=== PATIENT | male | born 2000 | race African-American/Black ===

== ENCOUNTER 2024-02-02 20:03 | Outpatient (REF) | payer OTHER, SELFPAY ==
--- NOTE | ~2024-02-02 | MR_ITS ---
EXAMINATION: MR FEMUR WITHOUT CONTRAST, RIGHT CLINICAL INFORMATION: Pain and swelling. Evaluate for quadriceps tendon tear. COMPARISON: None. TECHNIQUE: Multisequence MR imaging of the right femur was obtained without contrast on a high field strength scanner. FINDINGS: BONE: No marrow edema or evidence of acute osseous injury. No stress reaction, fracture, or avascular necrosis. No concerning lytic or blastic osseous lesion. MUSCLES/TENDONS: There is heterogeneity and irregularity involving the rectus femoris myotendinous junction extending from the level of the proximal femoral metaphysis distally along the muscle belly to the level of the mid diaphysis. This is over a length of approximately 12.9 cm in craniocaudal dimension. Edema throughout the muscle belly with trace linear areas of fluid signal. Findings are consistent with an acute/subacute grade 2 strain/partial tear. No full-thickness tendon tear or tendon retraction. The remaining visualized muscles and tendons are intact. SOFT TISSUES: No soft tissue mass or fluid collection. No restricted diffusion. The visualized intrapelvic structures are unremarkable. MR/MR femur RT wo con IMPRESSION: Acute/subacute grade 2 strain/partial tear of the rectus femoris muscle extending from the level of the proximal femoral metaphysis distally to the level of the mid diaphysis. No full-thickness tendon tear or tendon retraction. Electronically signed by: Eugene Bryson MD 02/03/2024 08:21 AM EDT RP
== END 2024-02-02 20:04 | disposition home or self-care (01) ==
LOC: HO.MRI 20:03
PROVIDERS: Visit Provider Family Medicine
DX: M79.651 Pain in right thigh (principal)
CPT/HCPCS: 73718

== ENCOUNTER 2024-04-21 19:37 | Outpatient (REF) | payer OTHER, SELFPAY ==
--- NOTE | ~2024-04-21 | MR_ITS ---
EXAMINATION: MR KNEE WITHOUT CONTRAST, LEFT CLINICAL INFORMATION: Instability, knee pain, suspect torn meniscus. COMPARISON: None available. TECHNIQUE: MRI of the knee without contrast was performed using routine sequences on a high-field scanner. FINDINGS: BONE MARROW: -No fractures or abnormal infiltrating bone marrow signal. -Subtle focus of subcortical edema at the insertional aspect of the patellofemoral ligament upon the medial condyle, likely stress response (series 12, image 20). Suspect a partial tear of the ligament at the insertion (series 12, image 18). -No additional bone marrow edema identified. No subchondral bone plate edema. ARTICULAR CARTILAGE: Patellofemoral Compartment: -There is a tiny focus of near full-thickness cartilage fissuring involving the inferior patellar apex oriented slightly medial of midline (series 8, image 11) . -Cartilage otherwise intact and normal in thickness and signal. Medial Compartment: -Normal cartilage without focal defect. Lateral Compartment: -Normal cartilage with only minimal surface irregularity of the lateral tibial plateau. No defects. JOINT FLUID AND BURSAE: -There is a small amount of increased joint fluid consistent with a small joint effusion. -No bursal abnormalities. MENISCI: Lateral Meniscus: -Oblique undersurface tear extending from the free margin to the superior aspect, posterior horn. No displaced fragment. -Otherwise intact and normal in signal. Root entry zones are normal. Medial Meniscus: -No definite tear present. Mild linear signal within the body does not extend to a joint surface to define a tear. -Otherwise normal. Rudimentary zones intact. LIGAMENTS: ACL: Intact and normal in signal. PCL: Intact and normal in signal. MCL: Intact .There is mild edema overlying the majority of the ligament, suggesting the possibility of a grade 1 strain injury. LCL complex: Intact and normal in signal. EXTENSOR MECHANISM: -Intact and normal in signal OTHER: -Muscles are normal in signal and bulk. -No popliteal fossa abnormality. MR/MR knee LT wo con IMPRESSION: 1. Oblique undersurface tear involving the posterior horn, lateral meniscus. No displaced fragment. 2. No additional meniscal tearing. 3. Small joint effusion. 4. Grade 1 strain MCL. 5. Focus of full-thickness cartilage fissuring inferior patellar apex. Cartilage is otherwise intact. 6. Suspect a partial insertional tear of the medial patellofemoral ligament. Electronically signed by: Joshua Baxter MD 04/28/2024 02:13 PM AMBERLY
== END 2024-04-21 19:38 | disposition home or self-care (01) ==
LOC: HO.MRI 19:37
PROVIDERS: Visit Provider Student in an Organized Health Care Education/Training Program
DX: M25.362 Other instability, left knee (principal)
CPT/HCPCS: 73721

== ENCOUNTER → 2024-04-21 19:42 | Outpatient (BNV) | payer OTHER, SELFPAY | PROVIDERS: Visit Provider Radiology Diagnostic Radiology | DX: M25.562 Pain in left knee (principal) | CPT/HCPCS: 73721 ==

== ENCOUNTER 2024-07-25 06:15 | Outpatient (REF) | payer OTHER, SELFPAY ==
--- OUTSIDE RECORDS SUMMARY | 2024-07-25 06:17 | XMS_ITS | Clinical Summary ---
Author Organization [facility] Address [address] [facility] [place] [address] Care Team Providers Care Animal Trainer Name Role Phone Ashvin Sawyre MD Primary Care Provider [phone] Allergies No known active allergies Medications Medication Sig Dispensed Refills Start Date End Date Status HYDROcodone-acetamino phen (NORCO) 5 mg-325 mg tablet Take 1 Tab by mouth every 6 hours as needed for moderate pain 15 Tab 08/11/2017 Active ondansetron (ZOFRAN ODT) 8 mg rapid dissolve tablet Take 1 Tab (8 mg) by mouth every 8 hours as needed for nausea/vomiting 8 Tab 08/11/2017 Active Active Problems Problem Noted Date Diagnosed Date Lela-Schlatter's disease, right 07/22/2017 Social History Tobacco Use Types Packs/Day Years Used Date Smoking Tobacco: Never Assessed Sex and Gender Information Value Date Recorded Sex Assigned at Not on file Gender Identity Not on file Sexual Orientation Not on file Last Filed Vital Signs Vital Sign Reading Time Taken Comments Blood Pressure 128/70 08/11/2017 6:50 PM EST Pulse 72 08/11/2017 6:50 PM EST Temperature 36.3 ??C (97.3 ??F) 08/11/2017 6:50 PM ES T Respiratory Rate 18 08/11/2017 6:50 PM EST Oxygen Saturation 97% 08/11/2017 6:50 PM EST Inhaled Oxygen Concentration - - Weight 147.5 kg (325 lb 2.9 oz) 08/11/2017 1:42 PM EST Height 195.6 cm (6' 5 ) 08/11/2017 1:42 PM EST Body Mass Index 38.56 08/11/2017 1:42 PM EST Plan of Treatment Health Maintenance Due Date Last Done Comments COVID-19 Vaccine ( season) 2024 Care Teams Animal Trainer Relationship Specialty Start Date End Date Ashvin Sawyer MD [address] [place] [id number] PCP - General Pediatrics 07/22/17
--- OUTSIDE RECORDS SUMMARY | 2024-07-25 06:17 | XMS_ITS | Clinical Summary ---
Author Organization [facility] Address [address] [place] [address] Care Team Providers Care Casing Inspector Name Role Phone Elizabeth Pablo MD Primary Care Provider [phone] Allergies Active Allergy Reactions Criticality Noted Date Comments No Allergy Information Available Other (See Comments) 10/09/2015 Medications Medication Sig Dispensed Refills Start Date End Date Status fluticasone (FLONASE) 50 mcg/actuation nasal spray 2 sprays by Nasal route daily.. 1 Bottle 3 10/09/2015 Active Social History Tobacco Use Types Packs/Day Years Used Date Smoking Tobacco: Never Smokeless Tobacco: Never Alcohol Use Standard Drinks/Week Comments Not Asked 0 (1 standard drink = 0.6 oz pur e alcohol) Sex and Gender Information Value Date Recorded Sex Assigned at Not on file Gender Identity Not on file Sexual Orientation Not on file Last Filed Vital Signs Vital Sign Reading Time Taken Comments Blood Pressure 118/74 10/09/2015 11:14 AM EDT Pulse - - Temperature 36.5 ??C (97.7 ??F) 10/09/2015 1 1:14 AM EDT Respiratory Rate 16 10/09/2015 11:1 4 AM EDT Oxygen Saturation - - Inhaled Oxygen Concentration - - Weight 138.9 kg (306 lb 3.2 oz) 016 11:14 AM EDT Height 193 cm (6' 4 ) 10/09/2015 11:14 AM EDT Body Mass Index 37.27 10/09/2015 11:14 AM EDT Plan of Treatment Health Maintenance Due Date Last Done Comments HIV SCREENING 2001 HIV Screening Every 1 Year 2001 HIV Screening Once 2001 Hepatitis C Screening 2001 COVID-19 Vaccine (1 of 4) 2013 Meningococcal B (1 of 2 - Standard) 2017 DTAP/TDAP/TD (1 - Tdap) 2020 HEPATITIS B VACCINES (1 of 3 - 19+ 3-dose series) 2020 Influenza vaccine (#1) 2024 Pneumococcal Vaccine: 0 to 64 Years Aged Out No longer eligible based on patient's age to complete this topic Care Teams Casing Inspector Relationship Specialty Start Date End Date Elizabeth Pablo MD [address] [place] [id number] PCP - General Family Medicine 09/27/15
--- OUTSIDE RECORDS SUMMARY | 2024-07-25 06:17 | XMS_ITS | Clinical Summary ---
Author Organization [facility] Address [address] [place] [address] Phone Care Team Providers Care Machine Stone Polisher Name Role Phone Unavailable Primary Care Provider Unavailabl e Allergies No known active allergies Medications No known medications Social History Tobacco Use Types Packs/Day Years Used Date Smoking Tobacco: Never Assessed Sex and Gender Information Value Date Recorded Sex Assigned at Not on file Legal Sex Male 6:02 PM EDT Gender Identity Not on file Sexual Orientation Not on file Last Filed Vital Signs Vital Sign Reading Time Taken Comments Blood Pressure 138/78 03/31/2022 2:30 PM EDT Pulse 61 03/31/2022 2:30 PM EDT Temperature 36.6 ??C (97.9 ??F) 03/31/2022 2:18 PM ED T Respiratory Rate 16 03/31/2022 2:30 PM EDT Oxygen Saturation 99% 03/31/2022 2:30 PM EDT Inhaled Oxygen Concentration - - Weight 136 kg (300 lb) 03/31/2022 1:36 PM EDT Height 195.6 cm (6' 5 ) 03/31/2022 1:36 PM EDT Body Mass Index 35.57 03/31/2022 1:36 PM EDT Plan of Treatment Health Maintenance Due Date Last Done Comments HIV Screening 2001 Depression Screening 2013 Meningococcal B Vaccine (1 o f 2 - Standard) 2017 Hepatitis C Screening 10/23/2019 Influenza Vaccine (#1) 2024 06/22/2017 DTaP/Tdap/Td Vaccines (7 - T d or Tdap) 02/29/2024 02/28/2014, 08/23/2006, 07/19/2003, Additional history exists Insurance [facility] [employer] [place] [id number]
== END 2024-07-25 06:16 | disposition home or self-care (01) ==
LOC: HO.UMASIMG 06:15
PROVIDERS: Visit Provider Student in an Organized Health Care Education/Training Program
DX: Z13.89 Encounter for screening for other disorder (principal)

== ENCOUNTER 2024-08-08 08:33 | Outpatient (REF) | payer OTHER, SELFPAY ==
--- NOTE | ~2024-08-08 | US_ITS ---
EXAMINATION: US RETROPERITONEAL COMPLETE (RENAL) CLINICAL INFORMATION: Rhabdomyolysis.. COMPARISON: None available. TECHNIQUE: Real-time imaging of the kidneys and bladder using grayscale and color Doppler technique. FINDINGS: RIGHT KIDNEY: 12 x 8 x 8 cm (SAG x AP x TRV). Normal echotexture. Renal cortical thickness is normal. No hydronephrosis. No solid or cystic lesion. Normal flow on color Doppler interrogation of the renal hilum. LEFT KIDNEY: 12 x 5 x 6 cm (SAG x AP x TRV). Normal echotexture. Renal cortical thickness is normal. No solid or cystic lesion. No hydronephrosis. Normal flow on color Doppler interrogation of the renal hilum. BLADDER: Fluid-filled. Bilateral ureteral jets are demonstrated. Prevoid bladder volume is 141 mL. Postvoid bladder volume is 3 mL. Prostate gland measures 5 cm in maximum dimension, volume 32 cc. US/US retroperitoneal comp IMPRESSION: No hydronephrosis. No urinary retention.. Electronically signed by: Vipul Stokes MD 08/08/2024 12:03 PM AMBERLY
--- OUTSIDE RECORDS SUMMARY | 2024-08-08 09:04 | XMS_ITS | Clinical Summary ---
Author Organization [facility] Address [address] [place] [address] Phone Care Team Providers Care Merchant Mill Utility Worker Name Role Phone Unavailable Primary Care Provider [...] 02/28/2014, 08/23/2006, 07/19/2003, Additional history exists Insurance [facility] [employer] [place] [id number]
--- OUTSIDE RECORDS SUMMARY | 2024-08-08 09:04 | XMS_ITS | Clinical Summary ---
Author Organization [facility] Address [address] [place] [address] Care Team Providers Care Six Pack Packer Name Role Phone Ashvin Sawyer MD Primary Care Provider [phone] Allergies No known active allergies Medications Medication [...] COVID-19 Vaccine ( season) 2024 Care Teams Six Pack Packer Relationship Specialty Start Date End Date Ashvin Sawyer MD [address] [place] [id number] PCP - General Pediatrics 07/22/17
--- OUTSIDE RECORDS SUMMARY | 2024-08-08 09:04 | XMS_ITS | Continuity of Care Document ---
Author Organization [address] Address [address] [place] [address] [address] [place] [address] Phone Care Team Providers Care Special Needs Librarian Name Role Phone Elizabeth Pablo MD Unavailable Unavailable Medications Medication Instructions Dosage Effective Dates (start - stop) Status Comments ibuprofen 600 mg tablet 1 po q 8 hours for 5 days then prn pain - No Longer Active Procedures Procedure Date IMMUNIZATION ADMIN SUBQ/IM 1 VACCINE Feb TDAP VACCINE 7 YRS/> IM MENINGOCOCCAL POLYSAC [facility] AD[facility]IM 1 VACCINE Sep PREVENTIVE MED ESTABLISHED PT 5-11YRS OFFICE/OUTPT EM EST EXP PROB FOCUS/LOW 1 5 MINS PREV VISIT, EST, AGE 5-11 OFFICE/OUTPATIENT VISIT, EST Advance Directives Directive Yes / No Effective Date File Name No Information Encounters Encounter Description Practice Location Reason(s) For Visit Diagnoses Date Provider Providers Copied on Encounter [address], [address] [place] [address], [place], [id number] , [place] tel:[phone] [facility] No Information 4 Samy Johnson. [address] [place] [address], [facility] [address], [id number]. tel:[phone] PREVENTIVE MED ESTABLISHED PT 5-[address]YRS [address], [address] [place] [address], [id number] , tel:[phone] [facility] Preventative visit (chief complaint) Need for prophylactic vaccination and inoculation against other specified single bacterial diseaseOverw eightOsgood- Schlatter/os teochondrose sRoutine infant or child health check 4 Samy Johnson. [address] [place] [address], [id number]. tel:[phone] Referring Provider: Elizabeth Wolff, [address] [place] [address], [id number]. tel:[phone] OFFICE/OUTPT EM EST EXP PROB FOCUS/LOW [address], [address] [place] [address], [id number] , [place] tel:[phone] [facility] twisted ankle (chief complaint) Ankle pain 3 Samy Johnson. [address] [place] [address], [id number]. tel:[phone] Referring Provider: Elizabeth Wolff, [address] [place] [address], [id number]. tel:[phone] PREV VISIT, EST, AGE 5-[address], [address] [place] [address], [id number] , [place] tel:[phone] [facility] Well child - 11 Years (chief complaint)obe sity (chief complaint) Routine infant or child health checkRoutine infant or child health check 3 Samy Zamarripa [address] [place] [address], [id number]. tel:[phone] Referring Provider: Elizabeth Wolff, [address] [place] [address], [id number]. tel:[phone] OFFICE/OUTPA TIENT VISIT, EST [address], [address] [place] [address], [id number] , [place] tel:[phone] [facility] No Information [address] Bobby Camargo. [facility] , [address], [place], [place], [id number], [place]. tel:[phone] Referring Provider: Raman Wolff, [facility] [address], [place], [address]. tel:[phone] Family History Family Member Type Diagnosis Age At Onset Mother Problem (finding) Alive and well Father Problem (finding) Alive and well Brother Problem (finding) Alive and well Immunizations Vaccine Date Status Comments Tdap administered Source: New Imm unization Record MCV4 (11-55 yrs) administered Source: New Immunization Record Payers Payer name Insurance type Covered democrat ID Authoriza tion(s) [facility] CI [id number] [facility] Cigna CI [id number] [facility] CI [id number] [facility] [employer] CI [id number] Social History Type Description Quantity Date Captured Comments Sex Male Smoking Status No Information Chief Complaint And Reason For Visit No Information Reason For Referral Reason For Referral No Information History Of Present Illness Encounter Date Complaint History Of Prese nt Illness Preventative visit Functional Status Date Functional Assessmen t No Information Instructions Date Instruction Additional Infor mation No Information Assessments Type Assessment Date No Information Patient Care Teams Name Effective Dates (start - stop) Status Members No Information
--- OUTSIDE RECORDS SUMMARY | 2024-08-08 09:04 | XMS_ITS | Continuity of Care Document ---
Author Organization [id number] Address [address] [place] [address] [address] [place] [address] Phone Care Team Providers Care Lifestyle Coordinator Name Role Phone Elizabeth Pablo MD Unavailable Unavailable Advance Directives Directive Yes / No Effective Date File Name No Information Encounters Encounter Description Practice Location Reason(s) For Visit Diagnoses Date Provider Providers Copied on Encounter [address], [address] [place] [address], [id number], tel:[phone] No Information Samy Johnson. [address] [place] [address], [address], [id number]. tel:[phone] Family History Family Member Type Diagnosis Age At Onset No Information Payers Payer name Insurance type Covered republican ID Authoriza tion(s) No Information Social History Type Description Quantity Date Captured Comments Sex Male Smoking Status No Information Chief Complaint And Reason For Visit No Information Reason For Referral Reason For Referral No Information History Of Present Illness Encounter Date Complaint History Of Prese nt Illness No Information Functional Status Date Functional Assessmen t No Information Instructions Date Instruction Additional Infor mation No Information Assessments Type Assessment Date No Information Patient Care Teams Name Effective Dates (start - stop) Status Members No Information
--- OUTSIDE RECORDS SUMMARY | 2024-08-08 09:04 | XMS_ITS | Continuity of Care Document ---
Author Organization [id number] [address] Address [address] [place] [address] Phone Care Team Providers Care Sap Basis Name Role Phone Ann RICHARDSON, Hugo Unavailable Unavailable Allergies, Adverse Reactions, Alerts Substance Reaction Status Criticality No Known Allergies Active No Inform ation Medications Medication Instructions Dosage Effective Dates (start - stop) Status Comments No Drug Therapy Prescribed Procedures Procedure Date OFFICE/OUTPT EM NEW DETAILED/LOW 30 MINS STREP A ASSAY W/OPTIC Advance Directives Directive Yes / No Effective Date File Name No Information Encounters Encounter Description Practice Location Reason(s) For Visit Diagnoses Date Provider Providers Copied on Encounter OFFICE/OUTPT EM NEW DETAILED/LOW 30 MINS [id number] [address], [address], [place], [place], [id number], tel:[phone] [facility] Thumb Pain (chief complaint) Viral pharyngitisSprain of right thumb 6-201 5 Juarez Hugo. [address], [address], [place], [place], [id number] , [place]. tel:[phone] Family History Family Member Type Diagnosis Age At Onset No Information Payers Payer name Insurance type Covered republican ID Authoriza tion(s) [facility] CI [id number] [employer] Cigna CI [id number] Social History Type Description Quantity Date Captured Comments Alcohol Use Details Unknown Caffeine Use Details Unknown Tobacco Use Status No Information Smoking Status No Information Sex Male Chief Complaint And Reason For Visit From encounter dated '10/17/2014 13:30'. Thumb Pain (chief complaint). Description: Location: thumb. The pain radiates to the The pain is relieved by ice. Associated symptoms include joint instability, joint tenderness, swelling and weakness. Pertinent negatives include bruising, crepitus, decreased mobility, difficulty initiating sleep, limping, locking, nocturnal awakening, nocturnal pain, numbness, popping, spasms and tingling in thearms. Additional information: R thumb injured while playing football. Reason For Referral Reason For Referral No Information History Of Present Illness Encounter Date Complaint History Of Prese nt Illness cough Onset: 5 days ag o. The patient describes the cough as dry. Associated symptoms include cough, post-nasal drainage and sinus pressure. cough Onset: 5 days ag o. The patient describes the cough as dry. Associated symptoms include cough, fatigue, nasal congestion, post-nasal drainage, rhinitis, rhinorrhea and sinus pressure. Pertinent negatives include chills, dyspnea, fever, heartburn, hemoptysis, hoarseness, night sweats, pleuritic pain, sore throat, weight loss and wheezing. Additional information: Pt is feeling tired not doing well . Thumb Pain Location: thumb. The pain radiates to the The pain is relieved by ice. Associated symptoms include joint instability, joint tenderness, swelling and weakness. Pertinent negatives include bruising, crepitus, decreased mobility, difficulty initiating sleep, limping, locking, nocturnal awakening, nocturnal pain, numbness, popping, spasms and tingling in the arms. Additional information: R thumb injured while playing football. Functional Status Date Functional Assessmen t No Information Medications Administered Medication Instructions Dosage Effective Dates (start - stop) Status Comments No Drug Therapy Prescribed Instructions Date Instruction Additional Infor mation No Information Assessments Type Assessment Date No Information Mental Status Date Cognitive Assessment Orientation - [place] ed to time, place, person, situation. Patient Care Teams Name Effective Dates (start - stop) Status Members No Information
== END 2024-08-08 08:34 | disposition home or self-care (01) ==
LOC: HO.UMASIMG 08:33
PROVIDERS: Visit Provider Student in an Organized Health Care Education/Training Program
DX: R53.83 Other fatigue (principal); M62.82 Rhabdomyolysis
CPT/HCPCS: 76770

== ENCOUNTER → 2024-08-08 11:15 | Outpatient (BNV) | payer OTHER, SELFPAY | PROVIDERS: Visit Provider Radiology Diagnostic Radiology | DX: M62.82 Rhabdomyolysis (principal) | CPT/HCPCS: 76770 ==